=== PATIENT | female | born 1965 | race Caucasian/White ===

== ENCOUNTER 2017-04-12 12:47 | Emergency (ER) | payer OTHER ==
--- NOTE | ~2017-04-12 | CR172 ---
[facility]. [facility] A Service of [facility] & [facility] RADIOLOGY TEXT RESULTS PATIENT: AVANI MELARA LOCATION: SED : 67 UNIT #: [id number] AGE: [address]: Scot Quintana MD SEX: F ORDER DR: [id number] [address] [address] [id number] E MR#: [id number] Acc #: [id number] NAME: AVANI MELARA : 1965 SEX: F STUDY DATE/TIME: 04/12/2017 13:13 UNIT: SED ROOM: STUDY DESCRIPTION: CR Knee 3 Views Lt Attending Physician: Scot Quintana M.D. Ordering Physician: Scot Quintana M.D. MEDICAL IMAGING REPORT This report is preliminary unless electronic signature is present. EXAM 3 views left knee, 04/12/2017 HISTORY Anterior to medial left knee pain after twisting today. COMPARISON None FINDINGS AP and lateral projection of the knee shows smooth articular anatomy without indication of fracture or dislocation at the major weight-bearing surface of the knee. There is no indication of radiopaque foreign body about the knee surface or joint effusion. IMPRESSION Normal left knee. Dictated by... Hamida Muñoz M.D. THIS IS AN ELECTRONICALLY VERIFIED REPORT Hamida Muñoz M.D. at 04/13/2017 2:02 PM CHARLES/tonya TD: 04/12/2017 16:06 JOB #: [id number] MEDICAL IMAGING REPORT Page 1 of 1
[2017-04-12] MEDS ORDERED: LAMICTAL150 MG PO (12:54)
[2017-04-12] MEDS ORDERED: TIZANIDINE HCL2 MG PO (12:55)
[2017-04-12] MEDS ORDERED: DESYREL150 M1 PO (12:58)
== END 2017-04-12 14:33 | disposition home or self-care (01) ==
LOC: SED 12:47
DX: S83.412A Sprain of medial collateral ligament of left knee, initial encounter (principal); Z79.899 Other long term (current) drug therapy; Z88.0 Allergy status to penicillin; Z88.5 Allergy status to narcotic agent; Z91.013 Allergy to seafood; W01.0XXA Fall on same level from slipping, tripping and stumbling without subsequent striking against object, initial encounter
CPT/HCPCS: 29530; 73562; 99283